=== PATIENT | male | born 1990 | race American Indian/Alaskan Native ===

== ENCOUNTER 2016-12-07 12:57 | Emergency (ER) | payer OTHER ==
[2016-12-07 13:35] VITALS: BP 120/67
--- NOTE | 2016-12-07 13:38 | Emergency Department Report ---
Chief Complaint: Arrhythmia/Palpitations Stated Complaint: A FIB PICKED UP Time Seen by Provider: 12/07/16 13:34 - HPI History of Present Illness: PT states he was dx with A fib seven years ago. PT states he has had palpitations since yesterday. PT states it is uncomfortable. PT states he tried taking ASA for his symptoms yesterday. - ROS Review of Systems: + palpitations + chest discomfort - Exam Vital Signs: Vital Signs 12/07/16 13:30 Temperature 98.4 F Pulse Rate 77 Respiratory 18 Rate Blood Pressure 120/67 O2 Sat by Pulse 98 Oximetry Physical Exam: pt looks well, non toxic. pt is not tachycardic, rrr MSE screening note: Focused history and physical exam performed. Due to findings the following was ordered: xr, ekg, labs ED Disposition for MSE Condition: Stable
--- NOTE | 2016-12-07 13:50 | XRay Report ---
CHEST 2 VIEWS INDICATION: Chest pain. COMPARISON: None similar. FINDINGS: PA and lateral chest radiographs demonstrate normal cardiomediastinal silhouette. Clear lungs. Intact bones. CONCLUSION: No acute disease in the chest. Thank you for the opportunity to participate in this patient's care.
[2016-12-07 14:49] LABS: Basophils % (Auto) 0.5 % (0.0-1.8); Eosinophils % (Auto) 3.6 % (0.0-4.3); Hemoglobin 18.1 gm/dl (11.8-15.2); Mean Corpuscular HGB Conc 34 % (32-34); Mean Corpuscular Hemoglobin 29 pg (28-32); Mean Corpuscular Volume 86 fl (84-94); Platelet Count 189 K/mm3 (140-440); Red Blood Count 6.31 M/mm3 (3.65-5.03); Red Cell Distribution Width 13.5 % (13.2-15.2)
[2016-12-07 14:59] LABS: INR 1.04 (0.87-1.13)
[2016-12-07 15:00] LABS: Partial Thromboplastin Time 24.8 Sec. (24.2-36.6)
[2016-12-07 15:06] LABS: Alanine Aminotransferase 44 units/L (7-56); Albumin 4.2 g/dL (3.9-5); Albumin/Globulin Ratio 1.4 %; Alkaline Phosphatase 46 units/L (35-129); Anion Gap 14 mmol/L; BUN/Creatinine Ratio 15.55; Blood Urea Nitrogen 14 mg/dL (9-20); Calcium 9.2 mg/dL (8.4-10.2); Carbon Dioxide 26 mmol/L (22-30); Chloride 104.5 mmol/L (98-107); Glucose 94 mg/dL (75-100); Sodium 140 mmol/L (137-145); Total Protein 7.1 g/dL (6.3-8.2)
--- NOTE | 2016-12-08 15:00 | ED Elopement Review ---
ED Pt Elopement review - Results review Lab results: Laboratory Tests 12/07/16 12/07/16 12/07/16 14:23 14:23 14:23 WBC 9.0 RBC 6.31 H Hgb 18.1 H Hct 54.0 H MCV 86 MCH 29 MCHC 34 RDW 13.5 Plt Count 189 Lymph % (Auto) 34.8 [place] % (Auto) 8.7 H Eos % (Auto) 3.6 Baso % (Auto) 0.5 Lymph # 3.1 [place] # 0.8 Eos # 0.3 Baso # 0.0 Seg Neutrophils % 52.4 Seg Neutrophils # 4.7 PT 13.5 INR 1.04 APTT 24.8 Sodium 140 Potassium 4.0 Chloride 104.5 Carbon Dioxide 26 Anion Gap 14 BUN 14 Creatinine 0.9 Estimated GFR > 60 BUN/Creatinine Ratio 15.55 Glucose 94 Calcium 9.2 Total Bilirubin 0.60 AST 24 ALT 44 Alkaline Phosphatase 46 Troponin T < 0.010 Total Protein 7.1 Albumin 4.2 Albumin/Globulin Ratio 1.4 - Call Back decision Pt Call Back Decision: Call pt to return to ED [facility] (EKG reveals atrial fibrillation with a rapid ventricular response)
== END 2016-12-07 18:16 | disposition left against medical advice (07) ==
LOC: ED 12:57
DX: R00.2 Palpitations (principal); Z53.21 Procedure and treatment not carried out due to patient leaving prior to being seen by health care provider
CPT/HCPCS: 36415; 71020; 80053; 84484; 85025; 85610; 85730; 93005; 93010

== ENCOUNTER 2019-11-26 00:06 | Emergency (ER) | payer OTHER ==
[2019-11-26] MEDS ORDERED: ACETAMINOPHEN 325 MG TAB PO ONE (02:03)
[2019-11-26] MEDS ORDERED: IBUPROFEN 600 MG TAB PO ONE (02:30)
--- NOTE | 2019-11-26 02:57 | XRay Report ---
CHEST 2 VIEWS INDICATION / CLINICAL INFORMATION: Cough and fever. COMPARISON: 12/07/16. FINDINGS: SUPPORT DEVICES: None. HEART / MEDIASTINUM: The heart size and pulmonary vasculature are normal. LUNGS / PLEURA: No significant pulmonary or pleural abnormality. No pneumothorax. ADDITIONAL FINDINGS: No significant additional findings. IMPRESSION: No acute abnormality or significant change. There is no evidence of pneumonia. Signer Name: Gal Thomas MD Signed: 11/26/2019 2:53 AM Workstation Name: [id number]
--- NOTE | 2019-11-26 04:47 | Emergency Department Report ---
ED General Adult HPI - General Chief complaint: Fever Stated complaint: HEAT EXHAUSTION,LITTLE COUGH Source: patient Mode of arrival: Ambulatory Limitations: No Limitations - History of Present Illness Initial comments: Patient is a 29-year-old -[place] male with a history of morbid obesity and intermittent A. fib who presents to the ED with complaint of acute onset per sistent nasal and sinus congestion, frontal sinus pressure and headache, diffuse body aches and pains, generalized weakness and fatigue and intermittent fever of up to 102 F for the last 2 days. Patient also complains of mild dry cough and shortness of breath. Patient states that she has been taking [id number] medication with no relief. Patient states that no one else has had similar sym ptoms at home or at work. Patient denies dizziness, syncope, chest pain, nausea, vomiting, abdominal pain, diarrhea, dysuria, urinary frequency and urgency, sore throat, change in vision, back pain, hematuria, or palpitations. MD Complaint: Nasal and sinus congestion; sinus pressure; fever and chills; dry cough -: Sudden, days(s) (2) Location: face, chest Radiation: non-radiation Severity scale (0 -10): 5 Quality: aching, sharp Consistency: intermittent Improves with: none Worsens with: none Associated Symptoms: denies other symptoms, cough, fever/chills, headaches, loss of appetite, malaise. denies: confusion, chest pain, diaphoresis, nausea/vomiting, rash, seizure, shortness of breath, syncope, weakness, other Treatments Prior to Arrival: none - Related Data Previous Rx's Medication Instructions Recorded Last Taken Type Edoxaban Tosylate [Savaysa] 60 mg PO DAILY #30 tablet 12/26/15 Unknown Rx Edoxaban Tosylate [Savaysa] 60 mg PO QDAY #30 tablet 12/26/15 Unknown Rx Acetaminophen [Tylenol] 500 mg PO Q6HR #30 tablet 11/26/19 Unknown Rx Azithromycin [Zithromax Z-SANAZ] 250 mg PO DAILY #6 tablet 11/26/19 Unknown Rx Benzonatate [Tessalon Perles] 100 mg PO Q8HR #30 capsule 11/26/19 Unknown Rx Cetirizine HCl [Zyrtec 10mg tab] 10 mg PO DAILY #30 tablet 11/26/19 Unknown Rx Allergies Allergy/AdvReac Type Severity Reaction Status Date / Time No Known Allergies Allergy Verified 07/09/13 23:46 ED Review of Systems ROS: Stated complaint: HEAT EXHAUSTION,LITTLE COUGH Other details as noted in HPI Constitutional: chills, fever, malaise, weakness Eyes: denies: eye pain, eye discharge, vision change ENT: congestion, other (Frontal sinus pressure). denies: ear pain, throat pain Respiratory: cough. denies: shortness of breath, wheezing Cardiovascular: denies: chest pain, palpitations Endocrine: no symptoms reported Gastrointestinal: denies: abdominal pain, nausea, vomiting, diarrhea Genitourinary: denies: urgency, dysuria Musculoskeletal: arthralgia, myalgia. denies: back pain, joint swelling Skin: denies: rash, lesions Neurological: headache. denies: weakness, paresthesias Psychiatric: denies: anxiety, depression Hematological/Lymphatic: denies: easy bleeding, easy bruising ED Past Medical Hx - Past Medical History Previous Medical History?: Yes Hx Heart Attack/AMI: Yes (A-FIB) Hx Congestive Heart Failure: No Hx Diabetes: No Hx Asthma: No Hx COPD: No Hx HIV: No Additional medical history: 3 episodes of A. Fib since 2008. fx right ankle - Surgical History Past Surgical History?: No - Social History Smoking Status: Never Smoker Substance Use Type: Alcohol - Medications Home Medications: Home Medications Medication Instructions Recorded Confirmed Last Taken Type Edoxaban Tosylate [Savaysa] 60 mg PO DAILY #30 tablet 12/26/15 Unknown Rx Edoxaban Tosylate [Savaysa] 60 mg PO QDAY #30 tablet 12/26/15 Unknown Rx Acetaminophen [Tylenol] 500 mg PO Q6HR #30 tablet 11/26/19 Unknown Rx Azithromycin [Zithromax Z-SANAZ] 250 mg PO DAILY #6 tablet 11/26/19 Unknown Rx Benzonatate [Tessalon Perles] 100 mg PO Q8HR #30 capsule 11/26/19 Unknown Rx Cetirizine HCl [Zyrtec 10mg tab] 10 mg PO DAILY #30 tablet 11/26/19 Unknown Rx ED Physical Exam - General Limitations: No Limitations General appearance: alert, in no apparent distress - Head Head exam: Present: atraumatic, normocephalic, normal inspection - Eye Eye exam: Present: normal appearance, PERRL, EOMI Pupils: Present: normal accommodation - ENT ENT exam: Present: normal orophraynx, mucous membranes moist, TM's normal bilaterally, normal external ear exam, other (Grossly congested nasal passages; palpable frontal and maxillary sinus tenderness) - Neck Neck exam: Present: normal inspection, full ROM. Absent: tenderness, lymphadenopathy - Respiratory Respiratory exam: Present: normal lung sounds bilaterally. Absent: respiratory distress, wheezes, rales, stridor, chest wall tenderness, decreased breath sounds - Cardiovascular Cardiovascular Exam: Present: regular rate, normal rhythm, normal heart sounds. Absent: systolic murmur, diastolic murmur, rubs, gallop - GI/Abdominal GI/Abdominal exam: Present: soft, normal bowel sounds. Absent: tenderness, rebound, hyperactive bowel sounds - Extremities Exam Extremities exam: Present: normal inspection, full ROM, normal capillary refill - Back Exam Back exam: Present: normal inspection, full ROM. Absent: tenderness, CVA tenderness (R), CVA tenderness (L), muscle spasm, paraspinal tenderness, vertebral tenderness - Neurological Exam Neurological exam: Present: alert, oriented X3, CN II-XII intact, normal gait, reflexes normal - Psychiatric Psychiatric exam: Present: normal affect, normal mood - Skin Skin exam: Present: warm, dry, intact, normal color. Absent: rash ED Course Vital Signs 11/26/19 11/26/19 00:22 04:02 Temperature 102.3 F H 99.7 F H Pulse Rate 89 77 Respiratory 18 18 Rate Blood Pressure 148/80 128/79 O2 Sat by Pulse 97 97 Oximetry ED Medical Decision Making - Radiology Data Radiology results: report reviewed, image reviewed Findings [facility] [address] [place] [address] XRay Report Signed Patient: BABATUNDE MUJICA MR#: [id number] : 1990 Acct:[id number] Age/Sex: 29 / M ADM Date: 11/26/19 Loc: ED Attending Dr: Ordering Physician: IVAN ELIAS Date of Service: 11/26/19 Procedure(s): XR chest routine 2V Accession Number(s): [id number] cc: IVAN ELIAS Fluoro Time In Minutes: CHEST 2 VIEWS INDICATION / CLINICAL INFORMATION: Cough and fever. COMPARISON: 12/07/16. FINDINGS: SUPPORT DEVICES: None. HEART / MEDIASTINUM: The heart size and pulmonary vasculature are normal. LUNGS / PLEURA: No significant pulmonary or pleural abnormality. No pneumothorax. ADDITIONAL FINDINGS: No significant additional findings. IMPRESSION: No acute abnormality or significant change. There is no evidence of pneumonia. Signer Name: Gal Thomas MD Signed: 11/26/2019 2:53 AM Workstation Name: [id number] Transcribed By: RT Dictated By: Gal Thomas MD Electronically Authenticated By: Gal Thomas MD Signed Date/Time: 11/26/19252 DD/ 9 TD/TT: - Medical Decision Making This is a 29-year-old -[place] male with a history of morbid obesity and intermittent A. fib who presents to the ED with complaint of acute onset persistent nasal and sinus congestion, frontal sinus pressure and headache, diffuse body aches and pains, generalized weakness and fatigue and intermittent fever of up to 102 F for the last 2 days. Patient also complains of mild dry cough and shortness of breath. Patient states that she has been taking [id number] medication with no relief. Patient states that no one else has had similar symptoms at home or at work. In the ED, patient is alert and oriented x3 and is not in distress but febrile in triage with a fever of 102 F. Patient was treated in the ED with antipyretics Tylenol. Chest x-ray shows no acute cardiopulmonary abnormalities or pneumonitis. Based on the history and physical exam findings, patient was discharged home on medications for acute frontal sinusitis and upper respiratory infection. Patient was advised to drink plenty of fluids and follow-up with his primary care physician in 5 to 7 days for reevaluation or return to the ED immediately if symptoms get worse. - Differential Diagnosis Sinusitis; URI; Pneumonia; Strep pharyngitis; Covid-19 Critical care attestation.: If time is entered above; I have spent that time in minutes in the direct care of this critically ill patient, excluding procedure time. ED Disposition Clinical Impression: Acute non-recurrent frontal sinusitis, Acute upper respiratory infection, Fever and chills Acute bronchitis Qualifiers: Bronchitis organism: other organism Qualified Code(s): J20.8 - Acute bronchitis due to other specified organisms Disposition: DC-01 TO HOME OR SELFCARE Is pt being admited?: No Does the pt Need Aspirin: No Condition: Stable Instructions: Acute Bacterial Rhinosinusitis (ED), Upper Respiratory Infection (ED), Fever in Adults (ED), Acute Bronchitis (ED) Additional Instructions: Take medication with food, drink plenty of fluids and follow-up with your primary care physician in 5 to 7 days for reevaluation. Consider outpatient testing for COVID-19 viral infection. Return to the ED immediately if symptoms get worse. Prescriptions: Acetaminophen [Tylenol] 500 mg PO Q6HR #30 tablet Benzonatate [Tessalon Perles] 100 mg PO Q8HR #30 capsule Azithromycin [Zithromax Z-SANAZ] 250 mg PO DAILY #6 tablet Cetirizine HCl [Zyrtec 10mg tab] 10 mg PO DAILY #30 tablet Referrals: [facility] [Provider Group] - 7-10 days Forms: Work/School Release Form(ED) Time of Disposition: 04:50 Print Language: DANISH
[2019-11-26 06:28] VITALS: BP 140/88
== END 2019-11-26 04:54 | disposition home or self-care (01) ==
LOC: ED 00:06
DX: J20.9 Acute bronchitis, unspecified (principal); J06.9 Acute upper respiratory infection, unspecified; J01.10 Acute frontal sinusitis, unspecified; R50.9 Fever, unspecified; I25.2 Old myocardial infarction; Z79.2 Long term (current) use of antibiotics; Z79.899 Other long term (current) drug therapy
CPT/HCPCS: 71046